=== PATIENT | female | born 1940 | race African-American/Black ===

== ENCOUNTER 2017-02-12 08:51 | Emergency (ER) | payer MEDICARE, BC ==
[~2017-02-12] VITALS: Ht 160 cm; Wt 80.0 kg
[2017-02-12] MEDS ORDERED: FURO-152 PO (09:03)
[2017-02-12] MEDS ORDERED: INSULIN (09:03)
[2017-02-12] MEDS ORDERED: LISI2.5T47 PO (09:03)
[2017-02-12] MEDS ORDERED: EZET10TA PO (09:03)
[2017-02-12] MEDS ORDERED: GABA-529 PO (09:03)
[2017-02-12 09:58] LABS: BASOPHILS % 0.9 % (0.0-2.0); EOSINOPHILS % 2.5 % (0.0-5.0); HEMATOCRIT. 37.8 % (36.0-48.0); HEMOGLOBIN. 12.5 g/dL (12.0-16.0); LYMPHOCYTES % 29.3 % (20.0-50.0); MEAN CORPUSCULAR HEMOGLOBIN 29.2 pg (28.0-32.0); MEAN PLATELET VOLUME 8.2 fl (7.4-10.4); MONOCYTES % 5.9 % (2.0-8.0); NEUTROPHILS % 61.4 % (40.0-76.0); PLATELET 204 x1000/uL (130-400); RED BLOOD CELL COUNT 4.29 mill/uL (4.2-5.4)
[2017-02-12 10:06] LABS: INR 1.1; PROTHROMBIN TIME 10.9 sec (9.4-11.6)
[2017-02-12 10:16] LABS: CARBON DIOXIDE 28 mEq/L (21-32); CHLORIDE 110 mEq/L (98-107); TROPONIN I < 0.02 ng/mL (0.00-0.04)
[2017-02-12 10:48] VITALS: BP 152/74
== END 2017-02-12 11:46 | disposition home or self-care (01) ==
LOC: ER 09:49
DX: S09.90XA Unspecified injury of head, initial encounter (principal); E11.9 Type 2 diabetes mellitus without complications; I11.9 Hypertensive heart disease without heart failure; Z79.4 Long term (current) use of insulin; V89.2XXA Person injured in unspecified motor-vehicle accident, traffic, initial encounter; Y93.89 Activity, other specified; Y92.89 Other specified places as the place of occurrence of the external cause; Y99.8 Other external cause status
CPT/HCPCS: 36415; 70450; 72125; 80053; 82962; 83880; 84484; 85025; 85610; 93005; 99285

== ENCOUNTER 2018-06-03 20:35 | Emergency (ER) | payer MEDICARE, BC ==
[~2018-06-03] VITALS: Ht 167.6 cm; Wt 107.0 kg
[~2018-06-03 20:35] MED LIST: FURO-152 PO; GABA-529 PO; INSULIN; LISI2.5T47 PO; ZET10 PO
[2018-06-03] MEDS ORDERED: SODIUM CHLORIDE 0.9% 1,000 ML IV ONE (21:41)
[2018-06-03] MEDS ORDERED: MORPHINE SULFATE 4 MG/ML CPJ (NOT FOR IM USE) IV STA (21:41)
[2018-06-03] MEDS ORDERED: ONDANSETRON HCL 4MG/2ML INJ IV STA (21:41)
[2018-06-03 23:13] LABS: BASOPHILS % 1.1 % (0.0-2.0); EOSINOPHILS % 1.4 % (0.0-5.0); HEMATOCRIT. 39.4 % (36.0-48.0); LYMPHOCYTES % 15.9 % (20.0-50.0); MEAN CORPUSCULAR HEMOGLOBIN 29.7 pg (28.0-32.0); MEAN CORPUSCULAR VOLUME 90.1 fL (81.0-99.0); MEAN PLATELET VOLUME 8.9 fl (7.4-10.4); NEUTROPHILS % 75.6 % (40.0-76.0); PLATELET 225 x1000/uL (130-400); RED BLOOD CELL COUNT 4.38 mill/uL (4.2-5.4); RED CELL DISTRIBUTION WIDTH 13.6 % (11.6-14.6)
[2018-06-03 23:20] LABS: CHLORIDE 109 mEq/L (98-107)
[2018-06-03 23:22] LABS: PROTHROMBIN TIME 10.4 sec (9.1-11.1)
[2018-06-04 00:28] VITALS: BP 135/64
== END 2018-06-04 00:32 | disposition home or self-care (01) ==
LOC: ER 20:35
DX: M25.562 Pain in left knee (principal); I10 Essential (primary) hypertension; I45.10 Unspecified right bundle-branch block; E11.9 Type 2 diabetes mellitus without complications; Z79.4 Long term (current) use of insulin; Z90.710 Acquired absence of both cervix and uterus; W01.0XXA Fall on same level from slipping, tripping and stumbling without subsequent striking against object, initial encounter; Y93.89 Activity, other specified; Y92.018 Other place in single-family (private) house as the place of occurrence of the external cause
CPT/HCPCS: 36415; 71045; 72170; 73552; 73560; 73590; 80048; 84484; 85025; 85610; 86850; 86900; 86901; 93005; 96374; 96375; 99284; J2270; J2405; J7030